=== PATIENT | female | born 1995 | race Caucasian/White ===

== ENCOUNTER 2016-06-24 03:02 | Inpatient (IN) | payer BC, MEDICAID ==
[~2016-06-24] VITALS: Ht 160 cm; Wt 76.8 kg
[2016-06-24] VITALS (10 sets, daily range): BP systolic 105–135; BP diastolic 68–100; PULSE 68–85; TEMP 97.9–98.5
[~2016-06-24 03:02] MED LIST: ADDERALL5 MG PO; BIOTIN1 POW PO; CEPHALEXIN500 M1 PO; DOXYCYCLINE 10100 MG PO; MACRODANTIN50 MG/CA1 PO; NORCO 325 MG-51 TAB PO; PHENERGAN 25 TA25 MG PO; PRENATAL MVI PO; PRENATAL1 TA2 PO; PROTONIX 40MG T40 MG PO; SEROQUEL 1100 MG/TAB PO; ZOLOFT 50MG50 MG PO
[2016-06-24 04:14] LABS: BASO % 0.2 % (0.0-2.0); EOS % 0.3 % (0-4.0); GRAN # 7.5 (1.4-6.5); GRAN % 70.4 % (42.2-75.2); HEMATOCRIT 37.1 % (37.0-47.0); HEMOGLOBIN 12.9 g/dl (12.5-16.0); LYMPH # 2.3 (1.2-3.4); LYMPH % 21.8 % (20.0-51.0); MEAN CELL VOLUME 92 fl (80.0-100.0); MEAN CORPUSCULAR HEMOGLOBIN 32 pg (27.0-31.0); MEAN CORPUSCULAR HGB CONC 35 g/dl (33.0-37.0); MONO # 0.7 (0.1-0.6); MONO % 6.8 % (1.7-9.3); PLATELET COUNT 174 K/mm3 (130-400); RED BLOOD COUNT 4.05 M/mm3 (4.10-5.30); REDCELL DISTRIBUTION WIDTH-CV 12.2 % (11.5-14.5); WHITE BLOOD COUNT 10.7 K/mm3 (4.8-10.8)
[2016-06-24] MEDS ORDERED: NEXIUM 20MG20 MG PO (05:13)
[2016-06-25 07:00] VITALS: BP 117/84; PULSE 64; TEMP 98.8
[2016-06-25 09:17] LABS: HEMATOCRIT 34.8 % (37.0-47.0); HEMOGLOBIN 11.7 g/dl (12.5-16.0)
[2016-06-25] MEDS ORDERED: IBU600 MG PO (09:46)
[2016-06-25] MEDS ORDERED: PERCOCET 325 MG1 TA2 PO (09:46)
== END 2016-06-25 14:38 | disposition home or self-care (01) | DRG 775 ==
LOC: LDRO 03:02 → LDR 03:25 → OB 05:45 → LDRO 14:58 → OB 06-25 14:38
PROVIDERS: Obstetrics & Gynecology
PROC: 10E0XZZ Delivery of Products of Conception, External Approach (ICD-10-PCS; principal; 2016-06-24)
DX: O48.0 Post-term pregnancy (principal); Z3A.40 40 weeks gestation of pregnancy; Z37.0 Single live birth
CPT/HCPCS: J2210; J2590; J7120

== ENCOUNTER 2016-07-14 11:47 | Emergency (ER) | payer BC, MEDICAID ==
[~2016-07-14] VITALS: Ht 160 cm; Wt 73.6 kg
[~2016-07-14 11:47] MED LIST changes: +IBU600 MG PO; +NEXIUM 20MG20 MG PO; +PERCOCET 325 MG1 TA2 PO
[2016-07-14 11:52] VITALS: BP 117/82; PULSE 78; TEMP 99
[2016-07-14 13:00] LABS: BASO % 0.3 % (0.0-2.0); EOS # 0.1 (0.0-0.7); EOS % 0.8 % (0-4.0); GRAN # 4.2 (1.4-6.5); GRAN % 65.1 % (42.2-75.2); HEMATOCRIT 38.3 % (37.0-47.0); HEMOGLOBIN 12.5 g/dl (12.5-16.0); LYMPH # 1.8 (1.2-3.4); LYMPH % 27.7 % (20.0-51.0); MEAN CELL VOLUME 95 fl (80.0-100.0); MEAN CORPUSCULAR HEMOGLOBIN 31 pg (27.0-31.0); MEAN CORPUSCULAR HGB CONC 33 g/dl (33.0-37.0); MEAN PLATELET VOLUME 10.6 fl (7.4-10.4); MONO # 0.4 (0.1-0.6); MONO % 5.8 % (1.7-9.3); PLATELET COUNT 245 K/mm3 (130-400); RED BLOOD COUNT 4.02 M/mm3 (4.10-5.30); REDCELL DISTRIBUTION WIDTH-CV 11.4 % (11.5-14.5); WHITE BLOOD COUNT 6.4 K/mm3 (4.8-10.8)
[2016-07-14 13:15] LABS: ADJUSTED CALCIUM 9.1 mg/dL (8.4-10.2); BILIRUBIN,TOTAL 0.7 mg/dL (0.0-1.0); CALCIUM 9.1 mg/dL (8.4-10.2); CREATININE, serum 0.86 mg/dL (0.52-1.25); POTASSIUM 4.2 mmol/L (3.4-5.0)
[2016-07-14] MEDS ORDERED: PREDNISONE20 MG PO (13:55)
== END 2016-07-14 14:24 | disposition home or self-care (01) ==
LOC: COL.ER 11:47
PROVIDERS: Emergency Medicine
DX: O99.63 Diseases of the digestive system complicating the puerperium (principal); K52.9 Noninfective gastroenteritis and colitis, unspecified
CPT/HCPCS: J7030; J7512; Q9967

== ENCOUNTER → 2016-08-03 | Outpatient (CLI) | payer BC, MEDICAID ==
[~2016-08-03] MED LIST changes: +PREDNISONE20 MG PO
== END ==
LOC: BHSO 13:40
DX: F31.73 Bipolar disorder, in partial remission, most recent episode manic (principal)

== ENCOUNTER → 2016-09-26 | Outpatient (CLI) | payer BC, MEDICAID | LOC: COL.RAD 09:45 | DX: R10.84 Generalized abdominal pain (principal); R12 Heartburn; R11.2 Nausea with vomiting, unspecified ==

== ENCOUNTER → 2016-10-18 | Outpatient (CLI) | payer BC, MEDICAID | LOC: COL.RAD 07:28 | DX: R11.2 Nausea with vomiting, unspecified (principal); R12 Heartburn | CPT/HCPCS: A9537 ==

== ENCOUNTER 2016-11-25 17:45 | Emergency (ER) | payer BC, MEDICAID ==
[~2016-11-25] VITALS: Ht 160 cm; Wt 68.2 kg
[2016-11-25 17:49] VITALS: BP 120/72; TEMP 99
[2016-11-25 18:48] VITALS: PULSE 68
== END 2016-11-25 18:48 | disposition home or self-care (01) ==
LOC: COL.ER 17:45
DX: T81.89XA Other complications of procedures, not elsewhere classified, initial encounter (principal); Z90.49 Acquired absence of other specified parts of digestive tract; Z87.448 Personal history of other diseases of urinary system

== ENCOUNTER 2017-01-20 23:29 | Emergency (ER) | payer BC, MEDICAID ==
[~2017-01-20] VITALS: Ht 160 cm; Wt 67.2 kg
[2017-01-20 23:31] VITALS: BP 134/96; TEMP 99
[2017-01-20] MEDS ORDERED: ATIVAN 0.50.5 MG/TAB PO (23:36)
[2017-01-20] MEDS ORDERED: ZOLOFT 50MG50 MG PO (23:36)
[2017-01-20] MEDS ORDERED: QUESTRAN4 GM/9 GM PO (23:36)
[2017-01-21] MEDS ORDERED: NORCO 325 MG-51 TAB PO (00:57)
[2017-01-21] MEDS ORDERED: CEPHALEXIN500 M1 PO (00:57)
[2017-01-21 01:33] VITALS: PULSE 68
== END 2017-01-21 01:35 | disposition home or self-care (01) ==
LOC: COL.ER 23:29
DX: S62.522B Displaced fracture of distal phalanx of left thumb, initial encounter for open fracture (principal); W23.1XXA Caught, crushed, jammed, or pinched between stationary objects, initial encounter; Y92.009 Unspecified place in unspecified non-institutional (private) residence as the place of occurrence of the external cause
CPT/HCPCS: J0690

== ENCOUNTER → 2017-02-08 | Outpatient (CLI) | payer BC, MEDICAID ==
[~2017-02-08] MED LIST changes: +ATIVAN 0.50.5 MG/TAB PO; +QUESTRAN4 GM/9 GM PO
== END ==
LOC: COL.RAD 09:45
DX: R10.11 Right upper quadrant pain (principal); R11.2 Nausea with vomiting, unspecified; R53.83 Other fatigue; Z90.49 Acquired absence of other specified parts of digestive tract

== ENCOUNTER 2017-04-11 08:01 | Emergency (ER) | payer BC, MEDICAID ==
[~2017-04-11] VITALS: Ht 160 cm; Wt 65.9 kg
[2017-04-11 08:08] VITALS: BP 118/79; TEMP 98.1
[2017-04-11 09:22] LABS: ADJUSTED CALCIUM 8.8 mg/dL (8.4-10.2); ALBUMIN 4.6 gm/dL (3.5-5.0); BILIRUBIN,TOTAL 0.9 mg/dL (0.0-1.0); CALCIUM 9.3 mg/dL (8.4-10.2); CREATININE, serum 0.79 mg/dL (0.52-1.25); POTASSIUM 3.9 mmol/L (3.4-5.0); TOTAL PROTEIN 7.4 gm/dL (6.4-8.2)
[2017-04-11 09:23] LABS: BASO % 0.4 % (0.0-2.0); EOS # 0.1 (0.0-0.7); EOS % 0.6 % (0-4.0); GRAN # 7.8 (1.4-6.5); GRAN % 79.5 % (42.2-75.2); HEMATOCRIT 39.6 % (37.0-47.0); HEMOGLOBIN 13.6 g/dl (12.5-16.0); LYMPH # 1.4 (1.2-3.4); LYMPH % 13.9 % (20.0-51.0); MEAN CELL VOLUME 91 fl (80.0-100.0); MEAN CORPUSCULAR HEMOGLOBIN 31 pg (27.0-31.0); MEAN CORPUSCULAR HGB CONC 34 g/dl (33.0-37.0); MEAN PLATELET VOLUME 10.8 fl (7.4-10.4); MONO # 0.5 (0.1-0.6); MONO % 5.4 % (1.7-9.3); PLATELET COUNT 223 K/mm3 (130-400); RED BLOOD COUNT 4.35 M/mm3 (4.10-5.30); WHITE BLOOD COUNT 9.8 K/mm3 (4.8-10.8)
[2017-04-11 09:33] LABS: COLLECTION METHOD CLEAN CATCH
[2017-04-11 09:39] LABS: MUCOUS Present /lpf; PH 5 (5-8); URINE APPEARANCE Clear; URINE BACTERIA None Seen /hpf; URINE BILIRUBIN Negative (NEGATIVE); URINE BLOOD Negative (NEGATIVE); URINE COLOR Yellow; URINE GLUCOSE Negative (NEGATIVE); URINE KETONE Negative (NEGATIVE); URINE LEUKOCYTE ESTERASE Negative (NEGATIVE); URINE PROTEIN(semi-quant) Negative (NEGATIVE); URINE RBC 0-2 /hpf; URINE WBC 0-2 /hpf
[2017-04-11 11:36] VITALS: PULSE 65
== END 2017-04-11 11:36 | disposition home or self-care (01) ==
LOC: COL.ER 08:01
PROVIDERS: Physician Assistant Medical
DX: R10.13 Epigastric pain (principal); G89.29 Other chronic pain; Z90.49 Acquired absence of other specified parts of digestive tract; Z87.19 Personal history of other diseases of the digestive system; Z87.891 Personal history of nicotine dependence
CPT/HCPCS: J2270; J2405; J7030; Q9967

== ENCOUNTER → 2017-05-08 | Outpatient (CLI) | payer BC, MEDICAID | LOC: COL.RAD 05-07 15:45 | DX: K63.89 Other specified diseases of intestine (principal); R11.2 Nausea with vomiting, unspecified; R74.8 Abnormal levels of other serum enzymes | CPT/HCPCS: A9541 ==

== ENCOUNTER → 2017-05-17 | Outpatient (CLI) | payer BC, MEDICAID | LOC: COL.RAD 08:46 | DX: R74.8 Abnormal levels of other serum enzymes (principal); R93.5 Abnormal findings on diagnostic imaging of other abdominal regions, including retroperitoneum; R10.9 Unspecified abdominal pain; Z90.49 Acquired absence of other specified parts of digestive tract | CPT/HCPCS: A9585 ==

== ENCOUNTER 2017-08-24 13:03 | Emergency (ER) | payer BC, MEDICAID ==
[~2017-08-24] VITALS: Ht 160 cm; Wt 64.5 kg
[2017-08-24 13:08] VITALS: TEMP 99.8
[2017-08-24] MEDS ORDERED: PAMELOR 25MG25 MG PO (13:18)
[2017-08-24] MEDS ORDERED: NEXIUM 20MG20 MG PO (13:20)
[2017-08-24 14:31] LABS: COLLECTION METHOD CLEAN CATCH
[2017-08-24 14:36] LABS: MUCOUS Present /lpf; PH 7 (5-8); SQUAMOUS EPITHELIAL 0-2 /hpf; URINE APPEARANCE Clear; URINE BACTERIA None Seen /hpf; URINE BILIRUBIN Negative (NEGATIVE); URINE BLOOD Negative (NEGATIVE); URINE COLOR Yellow; URINE GLUCOSE Negative (NEGATIVE); URINE KETONE Negative (NEGATIVE); URINE LEUKOCYTE ESTERASE Negative (NEGATIVE); URINE NITRATE Negative (NEGATIVE); URINE PROTEIN(semi-quant) Negative (NEGATIVE); URINE RBC 0-2 /hpf; URINE UROBILINOGEN Negative (NEGATIVE)
[2017-08-24 14:57] LABS: BASO % 0.5 % (0.0-2.0); EOS % 0.4 % (0-4.0); GRAN # 5.9 (1.4-6.5); GRAN % 70.1 % (42.2-75.2); HEMATOCRIT 39.3 % (37.0-47.0); HEMOGLOBIN 13.6 g/dl (12.5-16.0); LYMPH # 1.9 (1.2-3.4); LYMPH % 22.6 % (20.0-51.0); MEAN CELL VOLUME 90 fl (80.0-100.0); MEAN CORPUSCULAR HEMOGLOBIN 31 pg (27.0-31.0); MEAN CORPUSCULAR HGB CONC 35 g/dl (33.0-37.0); MEAN PLATELET VOLUME 10.7 fl (7.4-10.4); MONO # 0.5 (0.1-0.6); PLATELET COUNT 222 K/mm3 (130-400); RED BLOOD COUNT 4.35 M/mm3 (4.10-5.30); REDCELL DISTRIBUTION WIDTH-CV 11.6 % (11.5-14.5)
[2017-08-24 15:21] LABS: ALANINE AMINOTRANSFERASE 48 U/L (9-52); ALBUMIN 4.9 gm/dL (3.5-5.0); ALKALINE PHOSPHATASE 58 U/L (50-136); ANION GAP 14 mmol/L (7-16); AST,SGOT 63 U/L (15-37); BILIRUBIN,TOTAL 0.7 mg/dL (0.0-1.0); BLOOD UREA NITROGEN 10 mg/dL (7-17); C-REACTIVE PROTEIN < 0.5 mg/dL (0.0-0.9); CALCIUM 9.9 mg/dL (8.4-10.2); CARBON DIOXIDE 24 mmol/L (22-30); CHLORIDE 103 mmol/L (98-107); CREATININE, serum 0.86 mg/dL (0.52-1.25); GLUCOSE 92 mg/dL (74-106); SODIUM 141 mmol/L (137-145)
[2017-08-24] MEDS ORDERED: NORCO 325 MG-51 TAB PO (16:14)
[2017-08-24] MEDS ORDERED: ZOFRAN ODT4 MG PO (16:14)
[2017-08-24 16:55] VITALS: BP 135/86; PULSE 90
== END 2017-08-24 16:50 | disposition home or self-care (01) ==
LOC: COL.ER 13:03
PROVIDERS: Physician Assistant
DX: N83.201 Unspecified ovarian cyst, right side (principal); K21.9 Gastro-esophageal reflux disease without esophagitis; F41.9 Anxiety disorder, unspecified; F32.9 Major depressive disorder, single episode, unspecified; K58.9 Irritable bowel syndrome, unspecified
CPT/HCPCS: J1170; J2405; J7030

== ENCOUNTER 2017-09-14 17:49 | Emergency (ER) | payer BC, MEDICAID ==
[~2017-09-14] VITALS: Ht 160 cm; Wt 63.6 kg
[~2017-09-14 17:49] MED LIST changes: +PAMELOR 25MG25 MG PO; +ZOFRAN ODT4 MG PO
[2017-09-14 17:56] VITALS: TEMP 99
[2017-09-14] MEDS ORDERED: PRENATAL FORMU1 EAC3 PO (18:07)
[2017-09-14 18:25] LABS: BASO % 0.5 % (0.0-2.0); EOS # 0.2 (0.0-0.7); EOS % 2.8 % (0-4.0); GRAN # 4.7 (1.4-6.5); GRAN % 58.3 % (42.2-75.2); HEMATOCRIT 38.6 % (37.0-47.0); HEMOGLOBIN 13.3 g/dl (12.5-16.0); LYMPH # 2.5 (1.2-3.4); MEAN CELL VOLUME 91 fl (80.0-100.0); MEAN CORPUSCULAR HEMOGLOBIN 31 pg (27.0-31.0); MEAN CORPUSCULAR HGB CONC 35 g/dl (33.0-37.0); MEAN PLATELET VOLUME 10.4 fl (7.4-10.4); MONO # 0.6 (0.1-0.6); MONO % 7.3 % (1.7-9.3); PLATELET COUNT 230 K/mm3 (130-400); RED BLOOD COUNT 4.23 M/mm3 (4.10-5.30); REDCELL DISTRIBUTION WIDTH-CV 11.5 % (11.5-14.5)
[2017-09-14 18:25] LABS: COLLECTION METHOD CLEAN CATCH
[2017-09-14 18:31] LABS: MUCOUS Present /lpf; PH 5 (5-8); URINE APPEARANCE Hazy; URINE BACTERIA Rare /hpf; URINE BILIRUBIN Negative (NEGATIVE); URINE BLOOD Negative (NEGATIVE); URINE COLOR Yellow; URINE GLUCOSE Negative (NEGATIVE); URINE KETONE Negative (NEGATIVE); URINE LEUKOCYTE ESTERASE Trace (NEGATIVE); URINE NITRATE Negative (NEGATIVE); URINE PROTEIN(semi-quant) Negative (NEGATIVE); URINE RBC 0-2 /hpf
[2017-09-14 18:40] LABS: ALANINE AMINOTRANSFERASE 30 U/L (9-52); ALBUMIN 4.7 gm/dL (3.5-5.0); ALKALINE PHOSPHATASE 44 U/L (50-136); ANION GAP 15 mmol/L (7-16); AST,SGOT 21 U/L (15-37); BILIRUBIN,TOTAL 0.6 mg/dL (0.0-1.0); BLOOD UREA NITROGEN 15 mg/dL (7-17); C-REACTIVE PROTEIN < 0.5 mg/dL (0.0-0.9); CALCIUM 9.2 mg/dL (8.4-10.2); CARBON DIOXIDE 24 mmol/L (22-30); CHLORIDE 104 mmol/L (98-107); CREATININE, serum 0.84 mg/dL (0.52-1.25); GLUCOSE 89 mg/dL (74-106); POTASSIUM 4.1 mmol/L (3.4-5.0); SODIUM 143 mmol/L (137-145); TOTAL PROTEIN 8.6 gm/dL (6.4-8.2)
[2017-09-14 20:02] VITALS: BP 105/75; PULSE 74
== END 2017-09-14 20:03 | disposition home or self-care (01) ==
LOC: COL.ER 17:49
PROVIDERS: Emergency Medicine
DX: G89.29 Other chronic pain (principal); R10.31 Right lower quadrant pain; K58.9 Irritable bowel syndrome, unspecified; Z90.49 Acquired absence of other specified parts of digestive tract
CPT/HCPCS: J1170; J1885; J2550; J7030; Q9967

== ENCOUNTER 2017-10-26 20:20 | Emergency (ER) | payer BC, MEDICAID ==
[~2017-10-26] VITALS: Ht 160 cm; Wt 65.9 kg
[~2017-10-26 20:20] MED LIST changes: +PRENATAL FORMU1 EAC3 PO
[2017-10-26 20:28] VITALS: TEMP 98.2
[2017-10-26 21:23] LABS: COLLECTION METHOD CLEAN CATCH
[2017-10-26 21:26] LABS: BASO % 0.3 % (0.0-2.0); EOS # 0.1 (0.0-0.7); EOS % 1.3 % (0-4.0); GRAN # 6.9 (1.4-6.5); GRAN % 70.9 % (42.2-75.2); HEMOGLOBIN 12.3 g/dl (12.5-16.0); LYMPH # 2.2 (1.2-3.4); LYMPH % 22.4 % (20.0-51.0); MEAN CELL VOLUME 92 fl (80.0-100.0); MEAN CORPUSCULAR HEMOGLOBIN 32 pg (27.0-31.0); MEAN CORPUSCULAR HGB CONC 35 g/dl (33.0-37.0); MEAN PLATELET VOLUME 10.8 fl (7.4-10.4); MONO # 0.5 (0.1-0.6); MONO % 4.8 % (1.7-9.3); PLATELET COUNT 188 K/mm3 (130-400); RED BLOOD COUNT 3.86 M/mm3 (4.10-5.30); REDCELL DISTRIBUTION WIDTH-CV 11.8 % (11.5-14.5)
[2017-10-26 21:28] LABS: PH 7 (5-8); SQUAMOUS EPITHELIAL None Seen /hpf; URINE APPEARANCE Clear; URINE BACTERIA None Seen /hpf; URINE BILIRUBIN Negative (NEGATIVE); URINE BLOOD Negative (NEGATIVE); URINE COLOR Straw; URINE GLUCOSE Negative (NEGATIVE); URINE KETONE Negative (NEGATIVE); URINE LEUKOCYTE ESTERASE Negative (NEGATIVE); URINE NITRATE Negative (NEGATIVE); URINE PROTEIN(semi-quant) Negative (NEGATIVE); URINE RBC 0-2 /hpf; URINE UROBILINOGEN Negative (NEGATIVE)
[2017-10-26 21:33] LABS: HEMATOCRIT 35.5 % (37.0-47.0)
[2017-10-26 21:38] LABS: ALANINE AMINOTRANSFERASE 25 U/L (9-52); ALBUMIN 4.2 gm/dL (3.5-5.0); ALKALINE PHOSPHATASE 51 U/L (50-136); ANION GAP 11 mmol/L (7-16); AST,SGOT 24 U/L (15-37); BILIRUBIN,TOTAL 0.2 mg/dL (0.0-1.0); BLOOD UREA NITROGEN 7 mg/dL (7-17); CALCIUM 9.1 mg/dL (8.4-10.2); CARBON DIOXIDE 25 mmol/L (22-30); CHLORIDE 103 mmol/L (98-107); CREATININE, serum 0.75 mg/dL (0.52-1.25); GLUCOSE 88 mg/dL (74-106); LIPASE 48 U/L (23-300); POTASSIUM 3.8 mmol/L (3.4-5.0); SODIUM 138 mmol/L (137-145); TOTAL PROTEIN 7.1 gm/dL (6.4-8.2)
[2017-10-26 21:39] LABS: C-REACTIVE PROTEIN < 0.5 mg/dL (0.0-0.9)
[2017-10-26] MEDS ORDERED: CIPRO 500MG TA500 MG PO (22:46)
[2017-10-26 23:20] VITALS: BP 84/54; PULSE 67
== END 2017-10-26 23:20 | disposition home or self-care (01) ==
LOC: COL.ER 20:20
PROVIDERS: Emergency Medicine
DX: R10.11 Right upper quadrant pain (principal); R19.7 Diarrhea, unspecified; Z87.442 Personal history of urinary calculi; Z90.49 Acquired absence of other specified parts of digestive tract
CPT/HCPCS: J1170; J1200; J1630; J7030

== ENCOUNTER 2017-11-16 23:15 | Emergency (ER) | payer BC, MEDICAID ==
[~2017-11-16 23:15] MED LIST changes: +CIPRO 500MG TA500 MG PO
[2017-11-16 23:19] VITALS: TEMP 99.2
[2017-11-17 00:30] LABS: BASO % 0.5 % (0.0-2.0); EOS # 0.2 (0.0-0.7); EOS % 1.8 % (0-4.0); GRAN # 5.3 (1.4-6.5); GRAN % 63.1 % (42.2-75.2); HEMATOCRIT 37.4 % (37.0-47.0); LYMPH # 2.3 (1.2-3.4); LYMPH % 27.1 % (20.0-51.0); MEAN CELL VOLUME 91 fl (80.0-100.0); MEAN CORPUSCULAR HEMOGLOBIN 32 pg (27.0-31.0); MEAN CORPUSCULAR HGB CONC 35 g/dl (33.0-37.0); MEAN PLATELET VOLUME 10.4 fl (7.4-10.4); MONO # 0.6 (0.1-0.6); MONO % 7.3 % (1.7-9.3); PLATELET COUNT 202 K/mm3 (130-400); REDCELL DISTRIBUTION WIDTH-CV 11.5 % (11.5-14.5)
[2017-11-17 00:43] LABS: ALBUMIN 4.6 gm/dL (3.5-5.0); BILIRUBIN,TOTAL 0.4 mg/dL (0.0-1.0); CALCIUM 9.2 mg/dL (8.4-10.2); CREATININE, serum 0.86 mg/dL (0.52-1.25); POTASSIUM 3.8 mmol/L (3.4-5.0); TOTAL PROTEIN 7.5 gm/dL (6.4-8.2)
[2017-11-17 00:44] LABS: COLLECTION METHOD CLEAN CATCH
[2017-11-17 00:50] LABS: MUCOUS Present /lpf; PH 5 (5-8); SQUAMOUS EPITHELIAL 0-2 /hpf; URINE APPEARANCE Clear; URINE BACTERIA None Seen /hpf; URINE BILIRUBIN Negative (NEGATIVE); URINE BLOOD Negative (NEGATIVE); URINE COLOR Yellow; URINE GLUCOSE Negative (NEGATIVE); URINE KETONE Negative (NEGATIVE); URINE LEUKOCYTE ESTERASE Negative (NEGATIVE); URINE NITRATE Negative (NEGATIVE); URINE PROTEIN(semi-quant) Negative (NEGATIVE); URINE RBC 0-2 /hpf; URINE UROBILINOGEN Negative (NEGATIVE)
[2017-11-17] MEDS ORDERED: NORCO 325 MG-51 TAB PO ×2 (02:39→03:02)
[2017-11-17 03:10] VITALS: BP 124/90; PULSE 80
== END 2017-11-17 03:12 | disposition home or self-care (01) ==
LOC: COL.ER 23:15
PROVIDERS: Emergency Medicine
DX: N93.9 Abnormal uterine and vaginal bleeding, unspecified (principal); R11.2 Nausea with vomiting, unspecified; R10.9 Unspecified abdominal pain
CPT/HCPCS: J2405; J3010; J7030; Q9967

== ENCOUNTER → 2018-02-15 | Outpatient (CLI) | payer BC, MEDICAID ==
[2018-02-15 13:17] LABS: HEMATOCRIT 37.9 % (37.0-47.0); HEMOGLOBIN 12.9 g/dl (12.5-16.0); MEAN CELL VOLUME 94 fl (80.0-100.0); MEAN CORPUSCULAR HEMOGLOBIN 32 pg (27.0-31.0); MEAN CORPUSCULAR HGB CONC 34 g/dl (33.0-37.0); MEAN PLATELET VOLUME 10.3 fl (7.4-10.4); PLATELET COUNT 209 K/mm3 (130-400); RED BLOOD COUNT 4.02 M/mm3 (4.10-5.30); REDCELL DISTRIBUTION WIDTH-CV 11.5 % (11.5-14.5)
[2018-02-15 13:27] LABS: ALBUMIN 4.1 gm/dL (3.5-5.0); BILIRUBIN,TOTAL 0.2 mg/dL (0.0-1.0); CALCIUM 9.4 mg/dL (8.4-10.2); CREATININE, serum 0.76 mg/dL (0.52-1.25); POTASSIUM 4.2 mmol/L (3.4-5.0)
[2018-02-15 13:32] LABS: BAND 2 % (0-10); EOSINOPHIL 1 % (0-4); LYMPHOCYTE 28 % (20.0-51.0); NEUTROPHILS 63 % (42.0-75.2); PLATELET ESTIMATE NORMAL (NORMAL)
== END ==
LOC: COL.LAB 12:51
PROVIDERS: Physician Assistant
DX: K58.9 Irritable bowel syndrome, unspecified (principal)

== ENCOUNTER 2018-02-21 12:46 | Day surgery (SDC) | payer BC, MEDICAID ==
[~2018-02-21] VITALS: Ht 160 cm; Wt 70.9 kg
[2018-02-21 13:15] VITALS: BP 115/79; PULSE 89; TEMP 99.5
[2018-02-21 14:52] VITALS: BP 116/72; PULSE 82; TEMP 98.6
[2018-02-21 15:00] VITALS: BP 107/64; PULSE 71
[2018-02-21 15:15] VITALS: BP 109/70; PULSE 74
== END 2018-02-21 15:30 | disposition home or self-care (01) ==
LOC: SDCO 12:46
DX: K92.1 Melena (principal); K64.0 First degree hemorrhoids; Z90.49 Acquired absence of other specified parts of digestive tract; D64.9 Anemia, unspecified; K58.0 Irritable bowel syndrome with diarrhea
CPT/HCPCS: J2250; J2405; J3010; J7030

== ENCOUNTER 2018-04-21 10:39 | Emergency (ER) | payer BC, MEDICAID ==
[~2018-04-21] VITALS: Ht 160 cm; Wt 69.1 kg
[2018-04-21 10:42] VITALS: BP 150/98; TEMP 99.5
[2018-04-21 11:22] LABS: BASO % 0.4 % (0.0-2.0); EOS # 0.1 (0.0-0.7); EOS % 1.4 % (0-4.0); GRAN # 5.5 (1.4-6.5); GRAN % 70.5 % (42.2-75.2); HEMATOCRIT 41.6 % (37.0-47.0); HEMOGLOBIN 14.2 g/dl (12.5-16.0); LYMPH # 1.6 (1.2-3.4); LYMPH % 20.4 % (20.0-51.0); MEAN CELL VOLUME 94 fl (80.0-100.0); MEAN CORPUSCULAR HEMOGLOBIN 32 pg (27.0-31.0); MEAN CORPUSCULAR HGB CONC 34 g/dl (33.0-37.0); MONO # 0.5 (0.1-0.6); MONO % 6.9 % (1.7-9.3); PLATELET COUNT 206 K/mm3 (130-400); RED BLOOD COUNT 4.44 M/mm3 (4.10-5.30); REDCELL DISTRIBUTION WIDTH-CV 12.2 % (11.5-14.5)
[2018-04-21 11:30] LABS: ALBUMIN 4.5 gm/dL (3.5-5.0); CALCIUM 9.6 mg/dL (8.4-10.2); CREATININE, serum 0.75 mg/dL (0.52-1.25); POTASSIUM 3.8 mmol/L (3.4-5.0); TOTAL PROTEIN 7.7 gm/dL (6.4-8.2)
[2018-04-21 11:37] LABS: COLLECTION METHOD CATHETER
[2018-04-21 11:50] LABS: MUCOUS Present /lpf; PH 7 (5-8); URINE APPEARANCE Cloudy; URINE BACTERIA Rare /hpf; URINE BILIRUBIN Negative (NEGATIVE); URINE BLOOD Negative (NEGATIVE); URINE COLOR Amber; URINE GLUCOSE Negative (NEGATIVE); URINE KETONE Negative (NEGATIVE); URINE LEUKOCYTE ESTERASE 3+ (NEGATIVE); URINE NITRATE Negative (NEGATIVE); URINE PROTEIN(semi-quant) 2+ (NEGATIVE); URINE WBC >50 /hpf
[2018-04-21] MEDS ORDERED: ZOFRAN 4MG T4 MG/TAB PO (13:08)
[2018-04-21] MEDS ORDERED: NORCO 325 MG-51 TAB PO (13:08)
[2018-04-21] MEDS ORDERED: OMNICEF 300MG300 MG PO (13:08)
[2018-04-21 13:45] VITALS: PULSE 62
== END 2018-04-21 13:49 | disposition home or self-care (01) ==
LOC: COL.ER 10:39
PROVIDERS: Nurse Practitioner Primary Care
DX: N39.0 Urinary tract infection, site not specified (principal); F31.9 Bipolar disorder, unspecified; F41.9 Anxiety disorder, unspecified; F17.210 Nicotine dependence, cigarettes, uncomplicated; Z90.49 Acquired absence of other specified parts of digestive tract
CPT/HCPCS: A4216; J0696; J2270; J2405; J7030

== ENCOUNTER 2018-12-22 19:05 | Emergency (ER) | payer MEDICAID ==
[~2018-12-22] VITALS: Ht 160 cm; Wt 70.0 kg
[~2018-12-22 19:05] MED LIST changes: +OMNICEF 300MG300 MG PO; +ZOFRAN 4MG T4 MG/TAB PO
[2018-12-22 19:11] VITALS: TEMP 97.5
[2018-12-22 19:33] LABS: COLLECTION METHOD CLEAN CATCH
[2018-12-22 19:50] LABS: PH 6 (5-8); SQUAMOUS EPITHELIAL 20-50 /hpf; URINE APPEARANCE Cloudy; URINE BACTERIA None Seen /hpf; URINE BILIRUBIN Negative (NEGATIVE); URINE BLOOD 3+ (NEGATIVE); URINE COLOR Red; URINE GLUCOSE Negative (NEGATIVE); URINE KETONE Negative (NEGATIVE); URINE LEUKOCYTE ESTERASE 2+ (NEGATIVE); URINE NITRATE Negative (NEGATIVE); URINE PROTEIN(semi-quant) 2+ (NEGATIVE); URINE RBC >50 /hpf; URINE UROBILINOGEN Negative (NEGATIVE)
[2018-12-22 21:14] LABS: COLLECTION METHOD CLEAN CATCH
[2018-12-22 21:20] LABS: MUCOUS Present /lpf; PH 5 (5-8); SQUAMOUS EPITHELIAL 0-2 /hpf; URINE APPEARANCE Clear; URINE BACTERIA None Seen /hpf; URINE BILIRUBIN Negative (NEGATIVE); URINE BLOOD Negative (NEGATIVE); URINE COLOR Yellow; URINE GLUCOSE Negative (NEGATIVE); URINE KETONE Negative (NEGATIVE); URINE LEUKOCYTE ESTERASE Negative (NEGATIVE); URINE NITRATE Negative (NEGATIVE); URINE PROTEIN(semi-quant) Negative (NEGATIVE); URINE RBC 0-2 /hpf
[2018-12-22 21:56] VITALS: BP 130/80; PULSE 85
== END 2018-12-22 21:56 | disposition home or self-care (01) ==
LOC: COL.ER 19:05
PROVIDERS: Emergency Medicine; Physician Assistant
DX: N93.8 Other specified abnormal uterine and vaginal bleeding (principal); K58.9 Irritable bowel syndrome, unspecified; F17.210 Nicotine dependence, cigarettes, uncomplicated; Z90.49 Acquired absence of other specified parts of digestive tract; Z90.721 Acquired absence of ovaries, unilateral; Z90.712 Acquired absence of cervix with remaining uterus; Z87.42 Personal history of other diseases of the female genital tract

== ENCOUNTER 2019-12-13 13:48 | Inpatient (IN) | payer MEDICAID ==
[2019-12-13] VITALS (17 sets, daily range): BP systolic 107–142; BP diastolic 59–88; PULSE 67–90; TEMP 98.4–98.8
[~2019-12-13] VITALS: Ht 160 cm; Wt 83.6 kg
--- NOTE | 2019-12-13 14:00 | NUR ---
Patient ambulatory to unit accompanied by family member. Patient states that at 1320 she felt leaking of fluid, continuous clear fluid leaking. Patient in gown and resting in bed. FHR and contractions monitors placed and explained. patient states baby has been active, denies vaginal bleeding and states she is just feeling mild cramping. Patient MRSA positive and has had it in left axilla and left inner groin, no swabs taken in OB care. Contact precautions initiated. SVE 3-4/100/-2, amniotest positive, clear fluid noted on glove but bag of hurtado felt on exam. Assessment completed by Christiano Dyer RN. Dr. Peter called and orders received.
--- NOTE | 2019-12-13 14:15 | NUR ---
yCovid swab done and sent to lab.
[2019-12-13 14:40] LABS: BASO % 0.2 % (0.0-2.0); EOS # 0.1 (0.0-0.7); EOS % 0.4 % (0-4.0); GRAN % 80.1 % (42.2-75.2); HEMATOCRIT 33.9 % (37.0-47.0); HEMOGLOBIN 11.2 g/dl (12.5-16.0); LYMPH # 1.7 (1.2-3.4); LYMPH % 13.8 % (20.0-51.0); MEAN CELL VOLUME 94 fl (80.0-100.0); MEAN CORPUSCULAR HEMOGLOBIN 31 pg (27.0-31.0); MEAN CORPUSCULAR HGB CONC 33 g/dl (33.0-37.0); MEAN PLATELET VOLUME 11.1 fl (7.4-10.4); MONO # 0.6 (0.1-0.6); MONO % 4.9 % (1.7-9.3); PLATELET COUNT 170 K/mm3 (130-400); RED BLOOD COUNT 3.62 M/mm3 (4.10-5.30); REDCELL DISTRIBUTION WIDTH-CV 12.6 % (11.5-14.5)
--- NOTE | 2019-12-13 15:10 | NUR ---
Pt up to bathroom, voids. SVE: 4-5//-2. 1615:Pt up and ambulating in room. States contractions are getting stronger. 1700: Pitocin started at 2mu per physicians order. FHR reactive. 1725:Dr Peter here and at bedside. Pt up to bathroom. SVE: /-2. Pt denies wanting an epidural. Recurrent early variables noted. 1805: Pt calls out and feeling pressure. SVE: 7-/-2. Physician here and updated. 1815:Report given to Elizabeth ROGER.
--- NOTE | 2019-12-13 18:20 | NUR ---
182 STRONG RECTAL PRESSURE. [address] DICKERSON ON UNIT AND AWARE OF COMPLAINT. PITOCIN OFF.
--- NOTE | 2019-12-13 18:38 | NUR ---
1838 COMPLETE AND READIED FOR DELIVERY. DR DICKERSON AT BEDSIDE. 184 DELIVERED VIABLE MALE OVER INTACT PERINEUM WITH APGARS 8/8/9. REMAINS IN LR3. IV INFUSING.
--- NOTE | 2019-12-13 19:00 | NUR ---
1900 MOTRIN 800MG AND PERCOCET X1 PO GIVEN FOR RIGHT SIDE PAIN
--- NOTE | 2019-12-13 20:15 | NUR ---
2015 IV FLUIDS INFUSED AND TO INT. UP TO BR WITH ASSIST AND VOIDED 300CC. NO EXCESS VAG BLEEDING NOTED. ANTONY CARE DONE. AMB TO 207 AND MESSI WELL.
[2019-12-14 02:30] VITALS: BP 97/51; PULSE 78; TEMP 98.9
[2019-12-14 09:20] VITALS: BP 102/68; PULSE 81; TEMP 98.3
[2019-12-14] MEDS ORDERED: IBU800 M1 PO (09:39)
[2019-12-14 16:19] VITALS: BP 109/75; PULSE 93; TEMP 98.2
--- NOTE | 2019-12-14 18:40 | NUR ---
Report recieved. Whiteboard updated. POC reviewed. to [facility] for lab work. Denied questions or concerns.
[2019-12-14 19:30] VITALS: BP 96/63; PULSE 72; TEMP 98.5
--- NOTE | 2019-12-15 08:49 | NUR ---
Initial visit attempt; Radiopharmacist left card of congratulations and God's blessings for the of their son and information regarding the availability of spiritual care at our hospital.
== END 2019-12-15 15:05 | disposition home or self-care (01) | DRG 807 ==
LOC: LDRO 13:48 → LDR 14:15 → OB 20:49
PROVIDERS: Obstetrics & Gynecology; ADMIT Obstetrics & Gynecology
PROC: 10E0XZZ Delivery of Products of Conception, External Approach (ICD-10-PCS; principal; 2019-12-13)
DX: O99.824 Streptococcus B carrier state complicating childbirth (principal); Z37.0 Single live birth; O99.02 Anemia complicating childbirth; D64.9 Anemia, unspecified; O99.344 Other mental disorders complicating childbirth; F41.9 Anxiety disorder, unspecified; F31.9 Bipolar disorder, unspecified; F90.9 Attention-deficit hyperactivity disorder, unspecified type; O99.62 Diseases of the digestive system complicating childbirth; K58.9 Irritable bowel syndrome, unspecified; O71.82 Other specified trauma to perineum and vulva; Z3A.39 39 weeks gestation of pregnancy
CPT/HCPCS: J2540; J2590; J7120

== ENCOUNTER 2020-06-23 22:08 | Emergency (ER) | payer MEDICAID ==
[~2020-06-23] VITALS: Ht 160 cm; Wt 72.7 kg
[~2020-06-23 22:08] MED LIST changes: +IBU800 M1 PO
[2020-06-23 22:23] VITALS: BP 137/93; TEMP 98
[2020-06-24 00:35] VITALS: PULSE 87
== END 2020-06-24 00:35 | disposition home or self-care (01) ==
LOC: COL.ER 22:08
DX: S10.93XA Contusion of unspecified part of neck, initial encounter (principal); F17.210 Nicotine dependence, cigarettes, uncomplicated; Y04.8XXA Assault by other bodily force, initial encounter
CPT/HCPCS: Q9967

== ENCOUNTER 2020-08-22 05:03 | Emergency (ER) | payer MEDICAID ==
[~2020-08-22] VITALS: Ht 160 cm; Wt 70.5 kg
[2020-08-22 05:55] VITALS: BP 132/104; PULSE 79; TEMP 97.9
== END 2020-08-22 05:55 | disposition home or self-care (01) ==
LOC: COL.ER 05:03
DX: S80.211A Abrasion, right knee, initial encounter (principal); S40.811A Abrasion of right upper arm, initial encounter; V86.56XA Driver of dirt bike or motor/cross bike injured in nontraffic accident, initial encounter; Y93.55 Activity, bike riding; Y92.410 Unspecified street and highway as the place of occurrence of the external cause; Z98.890 Other specified postprocedural states

== ENCOUNTER 2021-08-21 21:13 | Emergency (ER) | payer MEDICAID ==
[~2021-08-21] VITALS: Ht 160 cm; Wt 65.9 kg
[2021-08-21 21:16] VITALS: BP 136/78; TEMP 98
[2021-08-21 21:44] VITALS: PULSE 65
== END 2021-08-21 21:46 | disposition home or self-care (01) ==
LOC: COL.ER 21:13
DX: T18.120A Food in esophagus causing compression of trachea, initial encounter (principal); F17.290 Nicotine dependence, other tobacco product, uncomplicated; Z90.49 Acquired absence of other specified parts of digestive tract; Z28.310 Unvaccinated for COVID-19